=== PATIENT | male | born 1980 | race Caucasian/White ===

== ENCOUNTER 2020-11-09 19:12 | Observation (INO) ==
[2020-11-09] MEDS ORDERED: cefTRIAXone SODIUM 1,000 MG/100 ML BAG IV ONE (19:30)
[2020-11-09] MEDS ORDERED: KETOROLAC TROMETHAMINE 30 MG/ML VIAL IV ONE (19:30)
[2020-11-09 19:50] LABS: Hematocrit 46.2 % (42.0-52.0); Hemoglobin 14.9 gm/dL (13.5-18.0); Mean Cell Volume 85.9 fl (78-100); Mean Corpuscular Hemoglobin 27.7 pg (27-31); Mean Corpuscular Hgb Conc 32.3 g/dl (32-36); Mean Platelet Volume 9.4 fl (8-11.3); Neutrophil # 7.3 K/mm3 (1.3-6.0); Neutrophil % 59.8 % (42-75.0); Platelet Count 353 K/mm3 (150-450); Red Blood Count 5.38 M/mm3 (4.7-6.0); Red Cell Distribution Width 14.1 % (11.5-14.0); White Blood Count 12.1 K/mm3 (4.0-10.5)
[2020-11-09 20:04] LABS: Albumin * 3.3 gm/dl (3.4-5.0); Anion Gap 12.6 mmol/L (6.8-13.8); BUN/Creatinine Ratio 12.3 (9.0-21.6); Bilirubin, Total 0.3 mg/dL (0.0-1.1); CRP 1.8 mg/dL (0.0-0.9); Ca. Corrected For Albumin 9.2 mg/dL (8.4-10.2); Carbon Dioxide 26.1 mmol/L (24-32.6); Potassium 3.7 mmol/L (3.4-4.6); Total Protein 7.5 gm/dL (6.2-8.2)
[2020-11-09] MEDS ORDERED: CLINDAMYCIN PHOSPHATE 600 MG in DEXTROSE 5 % IN WATER 100 ML IV ONE ×2 (20:44)
--- NOTE | 2020-11-09 21:04 | ERNOTE ---
Integumentary HPI - Narrative Date of Service: 11/09/20 - General Presenting Symptoms: rash Time Seen by Provider: 11/09/20 19:15 Source: patient Exam Limitations: no limitations - Immun/Allergies/Home Medications Immunizations: IMMUNIZATION HX Immunizations Up to Date Yes History of Influenza Vaccine No Hx Pneumococcal Vaccination No Allergies/Adverse Reactions: Allergies Allergy/AdvReac Type Severity Reaction Status Date / Time lorazepam [From Ativan] Allergy Hives Verified 11/09/20 19:20 Home Medications: HOME MEDICATIONS Cephalexin Monohydrate [Keflex] 500 mg PO QID #40 cap 11/06/20 [Last Taken 11/09/20] - Pain Pain Score: 8 - History of Present Illness Narrative: The patient is a 40 year old male who presents via POV for worsening wound which has been present for 2.5 weeks with worsening symptoms over the past 3 days. There are associated symptoms of skin weeping, fatigue, body aches and increased redness. The patient reports pain to left antecubital space, 8/10. There are no alleviating factors. There are aggravating factors of palpation. Previous treatments have included: Cephalexin without improvement. The past medical history includes: noncontributory. The social history is positive for current tobacco use. The patient has had no known ill contacts. Patient states he began with rash to left antecubital area approximately 2 weeks ago and did note itching and crusting to area. Patient states that rash has continued to spread around area but got much worse around 11/06/20 so he presented to the ER. Patient was dx with impetigo and started on Cephalexin, provider did notate that if not improving may need antibiotic regimen to cover MRSA. Patient denies known history of MRSA. Patient states since onset he has also noticed similar lesions to right antecubital, forearm, small lesions to lip and intermittent to chest. Patient reports left arm has noted edema and increased pain. Review of Systems - Review of Systems Constitutional: Present: chills, fatigue, malaise. Absent: fever EYE: Present: no symptoms reported ENT: Present: no symptoms reported. Absent: ear pain, nasal drainage, sore throat Respiratory: Present: no symptoms reported. Absent: shortness of breath, cough Cardiology: Present: no symptoms reported. Absent: chest pain Gastrointestinal/Abdominal: Present: no symptoms reported. Absent: nausea, vomiting, diarrhea, eating less, drinking less Genitourinary: Present: no symptoms reported. Absent: dysuria Musculoskeletal: Present: joint pain Skin: Present: rash, lesions Neurological: Present: no symptoms reported All Other Systems: All systems neg except as marked Medical History (Last Reviewed 11/09/20 @ 20:57 by MALISSA Sethi) No pertinent past medical history Surgical History: Surgical History (Last Reviewed 11/09/20 @ 20:57 by MALISSA Sethi) History of tonsillectomy Family History: Family History (Last Reviewed 11/09/20 @ 20:57 by MALISSA Sethi) Other Cancer Diabetes Hypertension Social History: (Last Reviewed 11/09/20 @ 20:57 by MALISSA Sethi) Social History: adopted: No foster care: No Marital status: number of children: 4 number of grandchildren: 5 current occupational status: unemployed Tobacco: Smoking Status: Current every day smoker Smoking cigarettes per day: 10 Alcohol: alcohol intake: former Substance Use: substance use type: marijuana Dietary Habits: Type: carbonated beverages Physical Exam - Physical Exam General Appearance: Present: wd/wn, alert, mild distress Head Exam: Present: normal inspection, no evidence of injury Eye Exam: Normal inspection: bilateral Neck: Present: normal inspection Respiratory: Present: no respiratory distress, normal breath sounds, no accessory muscle use, lungs clear Cardiovascular/Chest: Present: no murmur, tachycardia Extremity Exam: Present: normal range of motion. Absent: bony tenderness Neurological Exam: Present: alert, oriented, normal mood/affect, no motor/sensory deficits Skin Exam: Present: normal color, warm/dry, skin rash - erythema with excoriation noted to left antecubital area with satellite papular lesions, small vesicles also noted, area weeping, right antecubital has noted papular and vesicular lesion, vesicle also noted to right upper lip Progress - Date and Time Seen: Date and Time: 11/09/20 21:02 Discussed treatment options with patient vs inpatient IV antibiotics vs trial of alternate oral antibiotics outpatient. Patient would prefer admission due to persistent and worsening symptoms, I feel that this is appropriate as patient has had worsening symptoms and failed initial outpatient treatment. Patient states pain improved following administration of Toradol and is resting on cot. Case was reviewed with and will admit for observation with antibiotic treatment with Clindamycin for MRSA coverage. - Results and Orders Patient's Lab Results:: I have reviewed the patient's lab results. - Vital Signs Patient's Vital Signs:: I have reviewed the patient's vital signs. Vital Signs: Vital Signs 11/09/20 19:16 11/09/20 19:55 11/09/20 20:26 Temperature 35.8 C L 37.1 C Pulse Rate 104 H 98 84 Respiratory Rate 20 18 18 Blood Pressure 146/99 H 144/73 H O2 Sat by Pulse Oximetry 97 94 97 - Progress/Reassessment Chief Complaint: Cellulitis Progress:: Improved Departure Clinical Impression: Impetigo Cellulitis Qualifiers: Site of cellulitis: extremity Site of cellulitis of extremity: upper extremity Laterality: left Qualified Code(s): L03.114 - Cellulitis of left upper limb - Departure Disposition: Still a patient Condition: Fair
[2020-11-09] MEDS ORDERED: KETOROLAC TROMETHAMINE 30 MG/ML VIAL IV PRN (21:40)
[2020-11-09] MEDS ORDERED: ACETAMINOPHEN 500 MG TABLET PO PRN (21:40)
[2020-11-10] MEDS: hydrOXYzine HCL 25 MG TABLET PO PRN ×2 (00:13→08:31)
[2020-11-10] MEDS ORDERED: CLINDAMYCIN PHOSPHATE 600 MG in DEXTROSE 5 % IN WATER 100 ML IV SCH ×2 (06:00)
[2020-11-10] MEDS ORDERED: CLINDAMYCIN IN 0.9 % SOD CHLOR 600 MG/50 ML BAG IV SCH (06:30)
[2020-11-10] MEDS ORDERED: CLINDAMYCIN HCL 150 MG CAPSULE PO SCH (12:00)
--- NOTE | 2020-11-10 13:43 | HPDIS ---
Chief Complaint - Chief Complaint Date of Service: 11/10/20 Time of Service: 13:34 Chief Complaint: RUE cellulitis History of Present Illness: 40-year-old male with history of asthma presents the hospital 3 days earlier with right upper extremity infection/cellulitis. Patient at that time was found to be stable and discharged home on Keflex. Patient had been taking medication as directed but the infection worsened. Patient returned to the hospital yesterday for worsening cellulitis despite Keflex treatment. Patient admitted for outpatient treatment failure and started on clindamycin IV. Patient started to show regression of the infection this morning when examined. Patient initial white count was 12.2. His other vital signs been stable is been afebrile. No other pertinent labs. Patient admitted for observation. Medical History (Last Updated 11/09/20 @ 22:46 by Alejandrina Urena RN) Asthma No pertinent past medical history Surgical History: Surgical History (Last Reviewed 11/09/20 @ 20:57 by MALISSA Sethi) History of tonsillectomy Family History: Family History (Last Reviewed 11/09/20 @ 20:57 by MALISSA Sethi) Other Cancer Diabetes Hypertension Social History: (Last Reviewed 11/09/20 @ 20:57 by MALISSA Sethi) Social History: adopted: No foster care: No Marital status: number of children: 4 number of grandchildren: 5 current occupational status: unemployed Tobacco: Smoking Status: Current every day smoker Smoking cigarettes per day: 10 Alcohol: alcohol intake: former Substance Use: substance use type: marijuana Dietary Habits: Type: carbonated beverages Review Of Systems (GEN) - Review of Systems Generalized/Overall Review: Absent: Weakness, Chills, Fever EENTM: Present: No Symptoms Reported Respiratory: Present: No Symptoms Reported Cardiac: Present: No Symptoms Reported Abdominal: Present: No Symptoms Reported Genitourinary: Present: No Symptoms Reported Musculoskeletal: Present: No Symptoms Reported Neurological: Present: No Symptoms Reported Skin: Present: Other - Redness circumferential right upper extremity above the elbow around the bicep below the shoulder. Slightly warm to the touch Endocrine: Present: No Symptoms Reported Immunizations: IMMUNIZATION HX Immunizations Up to Date Yes History of Influenza Vaccine No Hx Pneumococcal Vaccination No Allergies/Adverse Reactions: Allergies Allergy/AdvReac Type Severity Reaction Status Date / Time lorazepam [From Ativan] Allergy Hives Verified 11/09/20 19:20 Home Medications: HOME MEDICATIONS Clindamycin HCl [Cleocin] 300 mg PO Q6H #27 cap 11/10/20 [Last Taken Unknown] hydrOXYzine HCL [Atarax] 25 mg PO QID PRN #12 tab 11/10/20 [Last Taken Unknown] Exam - Exam Vital Signs: Vital Signs - Last Taken Temp 36.5 C 11/10/20 10:34 Pulse 78 11/10/20 10:34 Resp 18 11/10/20 10:34 BP 123/67 11/10/20 10:34 Pulse Ox 97 11/10/20 10:34 Constitutional: Present: Alert, Oriented x3, Cooperative, No distress ENT Exam: Present: hearing grossly normal Eye Exam: bilateral eye: normal inspection, EOMI Neck: Present: supple, trachea midline Respiratory: Present: lungs clear, normal breath sounds Cardiovascular/Chest: Present: regular rate, rhythm, no murmur Peripheral Pulses: radial (R): 2+, radial (L): 2+ Abdomen: Present: soft, nontender, nondistended Extremity: Present: other - Cellulitic infection, circumferential above elbow below shoulder, outlined with regression seen from markings Skin Exam: Present: other - Cellulitic infection of right upper extremity, warm, nontender Appearance: Present: appropriate appearance, appropriate insight Eye contact: Present: cooperative, good eye contact Thoughts: Present: normal thought pattern, normal mood /affect Diagnostic Studies: Abnormal Lab Results 11/09/20 11/09/20 Range/Units 19:40 19:40 WBC 12.1 H (4.0-10.5) K/mm3 RDW 14.1 H (11.5-14.0) % Lymphocytes % 17.6 L (20-51) % Eosinophils % 12.6 H (0.0-3.0) % Neutrophils # 7.3 H (1.3-6.0) K/mm3 Monocytes # 1.1 H (0.0-1.0) k/mm3 Eosinophils # 1.5 H (0.0-0.7) k/mm3 Random Glucose 148 H (70-110) mg/dL C-Reactive Prot, Quant 1.8 H (0.0-0.9) mg/dL Albumin 3.3 L (3.4-5.0) gm/dl Microbiology 11/09/20 21:10 Wound Culture - Preliminary Arm - Left No Growth Laboratory Results WBC 12.1 K/mm3 (4.0-10.5) H 11/09/20 19:40 RBC 5.38 M/mm3 (4.7-6.0) 11/09/20 19:40 Hgb 14.9 gm/dL (13.5-18.0) 11/09/20 19:40 Hct 46.2 % (42.0-52.0) 11/09/20 19:40 MCV 85.9 fl (78-100) 11/09/20 19:40 MCH 27.7 pg (27-31) 11/09/20 19:40 MCHC 32.3 g/dl (32-36) 11/09/20 19:40 RDW 14.1 % (11.5-14.0) H 11/09/20 19:40 Plt Count 353 K/mm3 (150-450) 11/09/20 19:40 MPV 9.4 fl (8-11.3) 11/09/20 19:40 Immature Gran % (Auto) 0.20 % (0.001-0.429) 11/09/20 19:40 Immature Gran # (Auto) 0.02 K/mm3 (0.000-0.0310) 11/09/20 19:40 Neutrophils % 59.8 % (42-75.0) 11/09/20 19:40 Lymphocytes % 17.6 % (20-51) L 11/09/20 19:40 Monocytes % 8.9 % (0.0-9) 11/09/20 19:40 Eosinophils % 12.6 % (0.0-3.0) H 11/09/20 19:40 Basophils % 0.9 % (0.0-1.0) 11/09/20 19:40 Nucleated RBC % 0.0 k/mm3 (0-1) 11/09/20 19:40 Neutrophils # 7.3 K/mm3 (1.3-6.0) H 11/09/20 19:40 Lymphocytes # 2.14 k/mm3 (1.5-3.5) 11/09/20 19:40 Monocytes # 1.1 k/mm3 (0.0-1.0) H 11/09/20 19:40 Eosinophils # 1.5 k/mm3 (0.0-0.7) H 11/09/20 19:40 Absolute Basophils 0.1 k/mm3 (0.0-0.1) 11/09/20 19:40 Sodium 140 mmol/L (132-142) 11/09/20 19:40 Plasma Sodium 141 mmol/L (130-142) 11/09/20 19:40 Potassium 3.7 mmol/L (3.4-4.6) 11/09/20 19:40 Chloride 105 mmol/L (97-106) 11/09/20 19:40 Carbon Dioxide 26.1 mmol/L (24-32.6) 11/09/20 19:40 Anion Gap 12.6 mmol/L (6.8-13.8) 11/09/20 19:40 BUN 14 mg/dL (6-23) 11/09/20 19:40 Creatinine 1.14 mg/dL (0.4-1.4) 11/09/20 19:40 Est GFR (Non-Af Amer) 75 mL/min (60-130) 11/09/20 19:40 BUN/Creatinine Ratio 12.3 (9.0-21.6) 11/09/20 19:40 Random Glucose 148 mg/dL (70-110) H 11/09/20 19:40 Calcium 9.0 mg/dL (7.9-10.9) 11/09/20 19:40 Calcium Adj for Albumin 9.2 mg/dL (8.4-10.2) 11/09/20 19:40 Total Bilirubin 0.3 mg/dL (0.0-1.1) 11/09/20 19:40 AST 26 U/L (0-48) 11/09/20 19:40 ALT 45 U/L (19-67) 11/09/20 19:40 Alkaline Phosphatase 89 U/L (50-170) 11/09/20 19:40 C-Reactive Prot, Quant 1.8 mg/dL (0.0-0.9) H 11/09/20 19:40 Total Protein 7.5 gm/dL (6.2-8.2) 11/09/20 19:40 Albumin 3.3 gm/dl (3.4-5.0) L 11/09/20 19:40 SARS-CoV-2 (PCR) Not detected (NotDetected) 11/09/20 20:51 Assessment/Plan - Narrative Narrative: Patient placed in observation for cellulitic infection with failed outpatient treatment on Keflex. Patient started on clindamycin last night and there is already regression seen this morning when examined. Patient should do well on this medication and is wanting to go home. I think due to his fairly unremarkable labs and his normal vital signs, patient can be discharged home today with an additional 9-day course of clindamycin 3 times daily. This antibiotic will be sent to his pharmacy. Patient has no other concerns at this time. His vital signs been stable. SCDs were used for DVT prophylaxis while in bed. Regular diet ordered. - Assessment/Plan (1) Cellulitis Problem: Acute Qualifiers: Site of cellulitis: extremity Site of cellulitis of extremity: upper extremity Laterality: left Qualified Code(s): L03.114 - Cellulitis of left upper limb (1) Cellulitis Problem: Acute Qualifiers: Site of cellulitis: extremity Site of cellulitis of extremity: upper extremity Laterality: left Qualified Code(s): L03.114 - Cellulitis of left upper limb Date of Discharge:: 11/10/20 Hospital Course: Patient placed in observation for cellulitic infection with failed outpatient treatment on Keflex. Patient started on clindamycin last night and there is already regression seen this morning from initial outline when examined today. Patient should do well on this medication and is wanting to go home. I think due to his fairly unremarkable labs and his normal vital signs, patient can be discharged home today with an additional 9-day course of clindamycin 3 times daily. This antibiotic will be sent to his pharmacy. Procedures Performed: none Results and Findings: Pending Mircobiology Results 11/09/20 21:10 Arm - Left Wound Culture - Preliminary No Growth Lab Pending Results 11/09/20 19:40: WBC 12.1 H, RBC 5.38, Hgb 14.9, Hct 46.2, MCV 85.9, MCH 27.7, MCHC 32.3, RDW 14.1 H, Plt Count 353, MPV 9.4, Immature Gran % (Auto) 0.20, Immature Gran # (Auto) 0.02, Neutrophils % 59.8, Lymphocytes % 17.6 L, Monocytes % 8.9, Eosinophils % 12.6 H, Basophils % 0.9, Nucleated RBC % 0.0, Neutrophils # 7.3 H, Lymphocytes # 2.14, Monocytes # 1.1 H, Eosinophils # 1.5 H, Absolute Basophils 0.1 11/09/20 19:40: Sodium 140, Plasma Sodium 141, Potassium 3.7, Chloride 105, Carbon Dioxide 26.1, Anion Gap 12.6, BUN 14, Creatinine 1.14, Est GFR (Non-Af Amer) 75, BUN/Creatinine Ratio 12.3, Random Glucose 148 H, Calcium 9.0, Calcium Adj for Albumin 9.2, Total Bilirubin 0.3, AST 26, ALT 45, Alkaline Phosphatase 89, C-Reactive Prot, Quant 1.8 H, Total Protein 7.5, Albumin 3.3 L 11/09/20 20:51: SARS-CoV-2 (PCR) Not detected Discharge Location: Home Disposition: Home self-care Condition: Fair Discharge Activity: Activity as tolerated Discharge Diet: General/regular food Prescriptions (Any new or edited meds): hydrOXYzine HCL [Atarax] 25 mg PO QID PRN #12 tab PRN Reason: Itching Transmission Status: Pending to [facility] #[id number] Clindamycin HCl [Cleocin] 300 mg PO Q6H #27 cap Transmission Status: Pending to [facility] #[id number] Complete Home Medications List: Complete Home Medication List: Clindamycin HCl [Cleocin] 300 mg PO Q6H #27 cap 11/10/20 hydrOXYzine HCL [Atarax] 25 mg PO QID PRN #12 tab 11/10/20
[2020-11-10 15:17] VITALS: BP 133/69
== END 2020-11-10 15:24 | disposition home or self-care (01) ==
LOC: ER 19:12 → MS 19:12
PROVIDERS: ADMIT Family Medicine; ATTEND Family Medicine